=== PATIENT | female | born 1970 | race African-American/Black ===

== ENCOUNTER 2017-08-28 08:53 | Emergency (ER) | payer OTHER ==
[~2017-08-28] VITALS: Ht 160 cm; Wt 96.6 kg
[~2017-08-28 08:53] MED LIST: CHLORTHALIDONE25 MG PO; DIABETA 5MG TABL5 MG PO; GLUCOPHAGE850 MG PO; KLOR-CON 1010 MEQ PO; LABETALOL 100100 MG; LISINOPRIL10 MG PO
[2017-08-28] MEDS ORDERED: ALDACTONE50 MG PO (09:04)
[2017-08-28] MEDS ORDERED: TRIAMTERENE/HCT1 CA1 PO (09:05)
[2017-08-28] MEDS ORDERED: FARXIGA10 MG PO (09:07)
[2017-08-28] MEDS ORDERED: TRAMADOL 50 MG50 MG PO (10:05)
[2017-08-28 10:12] VITALS: BP 105/62
== END 2017-08-28 10:23 | disposition home or self-care (01) ==
LOC: M.ERS 08:53
DX: S92.511A Displaced fracture of proximal phalanx of right lesser toe(s), initial encounter for closed fracture (principal); I10 Essential (primary) hypertension; E11.9 Type 2 diabetes mellitus without complications; X58.XXXA Exposure to other specified factors, initial encounter; Y93.89 Activity, other specified; Y92.89 Other specified places as the place of occurrence of the external cause; Y99.8 Other external cause status

== ENCOUNTER → 2019-10-22 | Outpatient (CLI) | payer OTHER ==
[~2019-10-22] MED LIST changes: +ALDACTONE50 MG PO; +FARXIGA10 MG PO; +TRAMADOL 50 MG50 MG PO; +TRIAMTERENE/HCT1 CA1 PO
== END ==
LOC: M.ULTRA 09:00
PROVIDERS: ATTEND Specialist
DX: N83.292 Other ovarian cyst, left side (principal); N92.1 Excessive and frequent menstruation with irregular cycle

== ENCOUNTER → 2020-05-01 | Outpatient (CLI) | payer OTHER | LOC: M.ULTRA 10:15 | PROVIDERS: ATTEND Specialist | DX: K76.0 Fatty (change of) liver, not elsewhere classified (principal); K80.20 Calculus of gallbladder without cholecystitis without obstruction; K76.89 Other specified diseases of liver ==

== ENCOUNTER → 2020-06-05 | Outpatient (CLI) | payer OTHER | LOC: M.MRI 10:39 | PROVIDERS: ATTEND Specialist | DX: K76.9 Liver disease, unspecified (principal); K76.0 Fatty (change of) liver, not elsewhere classified; K76.89 Other specified diseases of liver ==